=== PATIENT | male | born 1985 | race African-American/Black ===

== ENCOUNTER 2020-01-15 10:07 | Emergency (ER) | payer MEDICAID, OTHER ==
[~2020-01-15] VITALS: Ht 190.5 cm; Wt 87.0 kg
[2020-01-15 10:09] VITALS: BP 180/89
[2020-01-15] MEDS ORDERED: ACETAMINOPHEN 325MG TABLET PO ONE (10:30)
== END 2020-01-15 13:48 | disposition home or self-care (01) ==
LOC: ER 10:23
DX: S50.311A Abrasion of right elbow, initial encounter (principal); M25.571 Pain in right ankle and joints of right foot; X58.XXXA Exposure to other specified factors, initial encounter; Y93.89 Activity, other specified; Y92.89 Other specified places as the place of occurrence of the external cause; Y99.8 Other external cause status
CPT/HCPCS: 73080; 73130; 73610; 99284